=== PATIENT | male | born 1955 | race Two or more races ===

== ENCOUNTER 2017-06-09 10:59 | Day surgery (SDC) | payer OTHER ==
[2017-06-09] MEDS ORDERED: BUPIVAC MPF-EPI 0.5%-1:200000 30 ML VIAL. ONE (11:04)
[2017-06-09] MEDS ORDERED: ATEN50TA PO (11:16)
[2017-06-09] MEDS ORDERED: LIDOCAINE 2% PF Vial for OR 5 ML VIAL. ONE ×2 (11:22→13:41)
[2017-06-09] MEDS ORDERED: PROPOFOL 20 ML IV ONE (11:22)
[2017-06-09] MEDS ORDERED: DEXAMETHASONE SOD PHOS 20 MG/5 ML VIAL. ONE (11:22)
[2017-06-09] MEDS ORDERED: ONDANSETRON PF 4 MG/2 ML VIAL. ONE (11:22)
[2017-06-09] MEDS ORDERED: ROCURONIUM 50 MG/5 ML VIAL. ONE ×2 (11:22→12:33)
[2017-06-09] MEDS ORDERED: fentaNYL PF VIAL 100 MCG/2 ML VIAL ONE ×2 (11:23→12:34)
[2017-06-09] MEDS ORDERED: TELM80TA PO (11:28)
[2017-06-09] MEDS ORDERED: RIVA20TA2 PO (11:28)
--- NOTE | 2017-06-09 11:56 | PDOC1 ---
History and Physical Date of Admission Date of Admission DATE: 06/09/17 TIME: 11:48 Identification/Chief Complaint Chief Complaint right inguinal fullness and pain Problems: Source Source: Chart review, Patient History of Present Illness History of Present Illness Mr Jasmine is a 61 yo gentleman with a recurrent right inguinal hernia. He was scheduled for elective repair at the [facility], but when he arrived he was told all cases had been cancelled. He was referred to our office, seen this AM and is brought for repair of his recurrent hernia Past Medical History Cardiovascular: HTN, Other (murmur, ectopy) Pulmonary: No pertinent hx GI: Constipation Renal/: Other (frequency) Past Surgical History Past Surgical History: Hernia Repair (right inguinal with mesh 2011) Family History Family History: No Significant Social History Smoke: No ALCOHOL: none Drugs: None Current Medications Current Medications Current Medications Bupivacaine HCl/ Epinephrine Bitart (Sensorcain-Mpf Epi 0.5%-[id number]) 30 ml STK -MED ONCE .ROUTE ; Start 06/09/17 at 11:04; Stop 06/09/17 at 11:05; Status DC Cefazolin Sodium/ Dextrose 50 ml @ 100 mls/hr 1X ONCE IV ; Start 06/09/17 at 11:15; Stop 06/09/17 at 11:44; Status DC Propofol 20 ml @ As Directed STK-MED ONCE IV ; Start 06/09/17 at 11:22; Stop at 11:23; Status DC Dexamethasone Sodium Phosphate (Decadron) 20 mg STK-MED ONCE .ROUTE ; Start 06/09/17 at 11:22; Stop 06/09/17 at 11:23; Status DC Lidocaine HCl (Lidocaine Pf 2% Vial) 5 ml STK-MED ONCE .ROUTE ; Start 06/09/17 at 11:22; Stop 06/09/17 at 11:23; Status DC Ondansetron HCl (Zofran) 4 mg STK-MED ONCE .ROUTE ; Start 06/09/17 at 11:22; Stop 06/09/17 at 11:23; Status DC Rocuronium [place] (Zemuron) 50 mg STK-MED ONCE .ROUTE ; Start 06/09/17 at 11:22 ; Stop 06/09/17 at 11:23; Status DC Fentanyl Citrate (Fentanyl 2ml Vial) 100 mcg STK-MED ONCE .ROUTE ; Start at 11:23; Stop 06/09/17 at 11:24; Status DC Active Scripts Active Reported Micardis (Telmisartan) 80 Mg Tablet 1 Tab PO DAILY Xarelto (Rivaroxaban) 20 Mg Tablet 20 Mg PO DAILY Atenolol 50 Mg Tablet 1 Tab PO DAILY Allergies Allergies: Coded Allergies: No Known Drug Allergies (Unverified , 06/09/17) ROS Review of System negative with exception of present complaints Physical Exam General: Alert, Oriented X3, Cooperative, No acute distress HEENT: Atraumatic, EOMI Lungs: Clear to auscultation Heart: RRR, other (V/ SARAH along the left sternal border) Male Genitals Exam: other (well healed right inguinal scar with fullness that extends into the right hemiscrotum) Vitals Vitals Vital Signs Date Time Temp Pulse Resp B/P (MAP) Pulse Ox O2 Delivery O2 Flow Rate FiO2 06/09/17 11:31 98.3 68 146/67 99 98.3 06/09/17 11:29 20 VTE Prophylaxis Ordered VTE Prophylaxis Devices: Yes VTE Pharmacological Prophylaxi: No Assessment/Plan Assessment/Plan recurrent right inguinal hernia heart murmur repair hernia he received cardiac clearance previously explained risks of repair including but not limited to bleeding, infection, recurrence, possible need for an orchiectomy he understands and will proceed. CANDICE FRAZIER MD Jun 09, 2017 11:56
[2017-06-09] MEDS ORDERED: ePHEDrine PF IN SALINE 50 MG/5 ML DISP.SYRIN IV ONE (12:08)
[2017-06-09] MEDS ORDERED: IV RINGERS,LACTATED 1000ML 1,000 ML IV SCH (12:44)
[2017-06-09] MEDS ORDERED: fentaNYL PF VIAL 100 MCG/2 ML VIAL IV PRN ×2 (12:45)
[2017-06-09] MEDS ORDERED: LIDOCAINE 1% PF 2 ML VIAL. ID PRN (12:45)
[2017-06-09] MEDS ORDERED: HYDROmorphone 2 MG/ML VIAL IV PRN (12:45)
[2017-06-09] MEDS ORDERED: PROCHLORPERAZINE 10 MG/2 ML VIAL. IV PRN (12:45)
[2017-06-09] MEDS ORDERED: ONDANSETRON PF 4 MG/2 ML VIAL. IV PRN (12:45)
[2017-06-09] MEDS ORDERED: MORPHINE SULFATE 2 MG/ML DISP.SYRIN. IV PRN (12:45)
[2017-06-09] MEDS ORDERED: SEVOFLURANE 61 TO 120 MINUTES. IH ONE (13:00)
[2017-06-09] MEDS ORDERED: NEOSTIGMINE METHYLSULFATE 5 MG/5 ML SYRINGE. ONE (13:19)
[2017-06-09] MEDS ORDERED: GLYCOPYRROLATE 1 MG/5 ML VIAL. ONE (13:19)
--- NOTE | 2017-06-09 14:13 | PDOC ---
BRIEF OPERATIVE NOTE Date: Jun 09, 2017 Pre-Op Diagnosis recurrent right inguinal hernia Post-Op Diagnosis same,indirect Procedure Performed repair with mesh Surgeon Manolo Anesthesia Type: General Blood Loss 50cc IV Fluid 1800cc Urine Output 60cc Specimens Obtained none Findings indirect hernia sack Complications none Operative Note Wk # [id number] CANDICE FRAZIER MD Jun 09, 2017 14:13
--- NOTE | 2017-06-09 14:14 | DISCH ---
DISCHARGE INSTRUCTIONS Condition on Discharge Condition on Discharge: Stable Activity After Discharge Activity Instructions for Disc: Activity as tolerated, Avoid exertion Lifting Instructions after Dis: No heavy lifting Driving Instructions after Dis: Do not drive Diet after Discharge Diet after Discharge: Regular Wound Incision Care Wound/Incision Care: Ice to area for comfort Other wound/incision instructi: giovanni shower Monday Follow-Up Follow up with: Manolo 06/15 CANDICE FRAZIER MD Jun 09, 2017 14:14
[2017-06-09 14:34] VITALS: BP 149/72
[2017-06-09] MEDS ORDERED: OXYC-323 PO (14:37)
--- NOTE | 2017-06-09 14:54 | OP ---
DATE OF SURGERY: 06/09/2017 PREOPERATIVE DIAGNOSIS: Recurrent right inguinal hernia. POSTOPERATIVE DIAGNOSIS: Recurrent right inguinal hernia, indirect. PROCEDURE: Repair with mesh. SURGEON: Hermilo Frazier MD ANESTHESIA: General endotracheal. ESTIMATED BLOOD LOSS: 50 mL. IV FLUIDS: 1800 mL. URINE OUTPUT: 60 mL. INDICATIONS: The patient is a 61-year-old with right inguinal fullness and pain. He had a previous repair in 2011. He is brought for repair of his recurrent hernia. OPERATIVE FINDINGS: Indirect hernia sac was present at the internal ring. DESCRIPTION OF PROCEDURE: The patient was brought to the operating suite, given a general endotracheal anesthetic. Sharpe catheter placed to dependent drainage, and the abdomen prepped and draped in usual sterile fashion. 0.5% Marcaine with epinephrine was used to infiltrate the skin and subcutaneous tissue along the old incision line. It was extended slightly medially. Dissection carried down to the recurrent hernia. Bleeders were cauterized as identified. The hernia was carefully mobilized circumferentially and the overlying fascia incised. This allowed mobilization of the hernia contents back to the internal ring where the defect resided in the hernia sac protruded from. Once we adequately mobilized the hernia sac, it was reduced and held in reduction with a plug of Phasix mesh, tacked with 2-0 PDS, taking care to avoid injury to adjacent vessels. The wound was checked for hemostasis, and when present, the cord was returned to its normal anatomical position. The attenuated fascia was closed over a running fashion with 0 Vicryl. Subq approximated with 3-0 Vicryl, skin closed with a subcuticular 4-0 Monocryl. Steri-Strips and sterile dressings applied. Prior to emergence from anesthesia, digital rectal exam failed to reveal evidence of prostatic enlargement or nodularity. The patient was awakened from his anesthetic and taken to the recovery room in satisfactory condition. HERMILO FRAZIER MD DR: NINA/evangelist JOB#: [id number] / [id number] barrett [address]ELAZQUEZ DR
== END 2017-06-09 15:18 | disposition home or self-care (01) ==
LOC: SURG 10:59
PROVIDERS: ATTEND Surgery
DX: K40.91 Unilateral inguinal hernia, without obstruction or gangrene, recurrent (principal); I10 Essential (primary) hypertension; Z79.899 Other long term (current) drug therapy; I48.91 Unspecified atrial fibrillation; K21.9 Gastro-esophageal reflux disease without esophagitis; Z98.890 Other specified postprocedural states
CPT/HCPCS: 49520; C1769; C1781; J0690; J1100; J2405; J2704; J2710; J3010; J3490; J7120; J2001

== ENCOUNTER → 2020-08-14 | Outpatient (CLI) | payer MEDICARE ==
[~2020-08-14] MED LIST: ATEN50TA PO; CONTRAST GIVEN. MC PRN; IOHEXOL 300 MG/ML 100ML VIAL. IV ONE; OXYC1TAB15 PO; RIVA20TA2 PO; TELM80TA PO
[2020-08-14 14:26] LABS: CREATININE 0.7 mg/dL (0.7-1.3); GFR 112.8
--- NOTE | 2020-08-14 18:44 | RAD ---
EXAM: CT Abdomen and Pelvis with and without IV contrast INDICATION: Reason: RENAL LESION / Spl. Instructions: INJ 75ML OMNI 300 / History: TECHNIQUE: Multi-detector row CT images were acquired from the lung bases through the abdomen and pel vis with and without the use of IV contrast. Postcontrast images were acquired at the abdomen Sagitta l and coronal images were acquired from the transaxial data. All CT scans performed at this facility utilize dose optimization techniques as appropriate to the exam, including the following: Automated e xposure control and adjustment of the mA and/or KV according to patient size (this includes technique s or standardized protocols for targeted exams where dose is indication/reason for exam). IV CONTRAST: Administered ORAL CONTRAST: Not administered COMPARISON: None currently available. FINDINGS: LOWER CHEST: Small amount of pericardial fluid is present measuring up to 11 mm maximum depth. Mitral valve prosthesis. LIVER: Unremarkable BILIARY SYSTEM: Gallbladder is unremarkable. Bile ducts are not dilated. PANCREAS: Unremarkable SPLEEN: Unremarkable ADRENALS: Unremarkable KIDNEYS & URETERS: Midpole left kidney shows a dense 2 cm circumscribed oval lesion, Hounsfield unit s of 79. This does not significantly change post contrast (comparing axial image 50 series 2 with elizabeth ge 45 series 4). Right kidney is unremarkable. No radiopaque stones in either kidney. No hydronephros is or significant perinephric soft tissue. BLADDER: Bladder is under distended and shows mild diffuse wall thickening that is nonspecific. REPRODUCTIVE ORGANS: Prostate measures 5.2 cm in diameter. GASTROINTESTINAL: No findings of bowel obstruction, perforation or acute inflammation. There is exten sive colonic diverticulosis. The appendix is normal. MESENTERY/PERITONEUM/RETROPERITONEUM: Unremarkable VASCULAR: Retroaortic left renal vein. There may also be an accessory retroaortic left renal vein lo wer insertion of the IVC at the common iliac vein confluence. Scattered aortic calcifications. 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 LYMPH NODES: No adenopathy OSSEOUS & SOFT TISSUES: Soft tissue stranding in the right inguinal crease is present with mild defo rmity of the skin surface suggesting postsurgical changes from previous arterial cutdown.. IMPRESSION: 1. A 2 cm dense mass in the left kidney on CT shows enhancement characteristics consistent with a hem orrhagic or proteinaceous cyst but does not require additional imaging follow-up based on these imagi ng findings. Recommend correlation with any previous examination when available and with patient's cl inical history. Electronically signed by: Deniz Oneill MD (08/14/2020 6:42 PM) [id number]
--- NOTE | 2020-08-14 20:43 | RAD ---
Thyroid ultrasound: Reason for examination: Multinodular thyroid gland. No previous exams for comparison. The right lobe of the thyroid gland measures 5.2 x 2.9 x 2.4 cm in greatest dimension and shows meghann l vascular flow. There are 3 nodules identified in the right lobe of the thyroid gland measuring 2.1 x 2.4 x 1.3 cm in size which appears to be solid, 1.3 x 1.1 x 0.9 cm in size which appears to be comp karine and 1.2 x 0.9 x 1.0 cm in size which appears to be complex. The left lobe of the thyroid gland measures 4.8 x 2.7 x 2.2 cm in greatest dimension and contains 3 n odules measuring 9.1 x 7.7 mm in size which appears to be solid, 1.3 x 1.0 x 1.6 cm in size which dinora ears to be solid and containing calcifications and 1.0 x 0.9 x 1.3 cm in size which appears to be christa id. The isthmus is thickened at 7.9 mm. IMPRESSION: Multinodular goiter with solid and complex masses bilaterally with the largest nodule in the right lo be measuring 2.4 cm in greatest dimension and the largest nodule in the left lobe measuring 1.6 cm in greatest dimension. Electronically signed by: Taylor Gomez MD (08/14/2020 8:40 PM) OLGAGOLDEN
== END ==
LOC: CT 12:05
PROVIDERS: ATTEND Psychiatry & Neurology Neurology
DX: Z12.5 Encounter for screening for malignant neoplasm of prostate (principal); N28.89 Other specified disorders of kidney and ureter; E04.2 Nontoxic multinodular goiter
CPT/HCPCS: 36415; 74178; 76536; 82565; G0103; Q9967